=== PATIENT | female | born 1990 | race Caucasian/White ===

== ENCOUNTER 2017-03-08 20:11 | Emergency (ER) | payer OTHER ==
[~2017-03-08] VITALS: Ht 165.1 cm; Wt 100.0 kg
[~2017-03-08 20:11] MED LIST: HYOS0.1281 SL; ONDA4TAB9 PO
[2017-03-08 20:15] VITALS: BP 157/93; PULSE 89; RESP 16; O2SAT 98
--- NOTE | 2017-03-08 21:45 | ED.REPORT ---
HPI-Ear Pain/Problem/FB Date of Service Mar 08, 2017 ED Provider: Dewayne Maldonado MD Patient is a 27 y/o female who presents to the ED complaining of left ear pain onset two days ago. The pain started radiating down her neck today and she complains of nausea. She was seen at a clinic yesterday where she was diagnosed with mastoiditis and started on Augmentin. Patient reports that she did not receive a CT scan at that time but was told to come to the ED if her symptoms worsened. Nursing Notes Stated Complaint: POSS MASTOIDITIS/PAIN/NAUSEA Chief Complaint: General Complaint Nursing Notes Reviewed: Yes Allergies: Coded Allergies: No Known Allergies (Unverified , 03/08/17) Scheduled PRN Hyoscyamine SL (Levsin SL) 0.125 Mg Tab.subl 0.125 MG SL TID PRN PRN For Pain Ondansetron ODT (Zofran ODT) 4 Mg Tablet 4 MG PO Q4H PRN PRN For Nausea General Time Seen by MD: 21:50 Chief Complaint Ear problem left Hx Obtained From: Patient Arrived By: Walk-in Onset Occurred: 2 days ago Symptom Duration: Since onset Quality: Painful Severity: Current: Moderate Severity: Maximum: Moderate Recent Healthcare: No recent hospitalization, Recent doctor visit Similar Sx Previous: No Past Medical History Past Medical History Notes: none reported Past Medical History none reported Past Surgical History Reports: Cholecystectomy Smoking History Unknown if Ever Smoker Social History Alcohol Use: Denies alcohol use Drug Use: Denies drug use Other Social History: Good social support, , Lives with children Ambulatory Status Independent Review of Systems Ears / Nose / Throat: Reports: Earache left Complete sys rev & neg: except as marked. Additional Review of Systems GI: Reports: Nausea Musculoskeletal: Reports: Neck pain Physical Exam Initial Vital Signs Vital Signs (First) Date Time Temp Pulse Resp B/P Pulse Ox O2 Delivery O2 Flow Rate FiO2 03/08/17 20:15 36.6 89 16 157/93 98 Room Air Initial VS: Reviewed, Vital signs abnormal General/Constitutional: Awake, Alert ENT: Ext aud canal NL tender over the left mastoid no surrounding erythema left TM dull and red without bulging Head / Eyes: Atraumatic, Normocephalic Neck: Atraumatic, Supple, Full range of motion Respiratory / Chest: Atraumatic, Breath sounds NL, Breath sounds = bilat, No respiratory distress Cardiovascular: Heart rate NL, Regular rhythm, Heart sounds NL Skin: Atraumatic, Color NL, No rash, Warm, Dry Neurologic: Oriented X3, Speech NL Upper Extremity / MS: Atraumatic, Full range of motion Lower Extremity / Pelvis / MS: Atraumatic, Full range of motion Interpretation & Diagnostics Interpretation & Diagnostics: CT Temporal bones Impression: Normal CT of the temporal bones Electronically signed by Edwin Mcnamara M.D. Re-Eval/Medical Decision Med Decision/Clinical Course 27-year-old female who was seen in clinic yesterday for acute her ear infection and concern for mastoiditis. Imaging was not done and she was placed on Augmentin. Her symptoms have worsened slightly with increasing pain and swelling and some radiation of the pain down her neck. Because of the concern for mastoiditis and failing outpatient treatment, CT scan was performed which shows no evidence of mastoiditis. Clinically, I would suspect that this is a enlarged posterior or radicular node related to the ear infection. We will continue the Augmentin and follow up with her primary doctor in 1-2 days as needed. Source of Hx: Old records Re-Evaluation/Progress : Time of Eval: 23:59 Re-Evaluation/Progress Note: Discussed CT results and plan for discharge. Patient understands and agrees to plan. All questions were addressed. Counseled Regarding: Diagnosis, Lab results, Need for follow-up, When/why to return to ED Discharge & Departure Primary Impression: Posterior auricular lymphadenopathy Disposition: Home Discharge Condition All VS Reviewed: Yes Condition: Stable Patient Instructions: Ear Infection (ED) Additional Instructions: The CT scan shows no evidence of mastoiditis, actual infection of the mastoid air cells. I think the lump and the pain are due to a swollen posterior auricular lymph node. The antibiotic that you are currently on is appropriate for your ear infection and associated lymphadenopathy. Warm compresses might be helpful. Follow-up with your regular doctor or return to the emergency room if is not better in 2 or 3 days. You can call me at [phone] between the hours of 9 PM and 6 AM for the next few nights if you have any questions or concerns (I am not here Saturday night, though). Referrals: Gillian Griffiths MDibsusi Attestation Portion of this note were transcribed by Yeimi Thorpe and Sandra Verma. I, Dr. Dewayne Maldonado personally performed the history, physical exam and medical decision-making; I reviewed and confirmed the accuracy of the information in the transcribed note. Signed by: Yeimi Thorpe and Sandra Verma, Scribe, 03/08/17. copies to: Gillian Griffiths MD, Howard L MD Mar 08, 2017 21:45 Yeimi Thorpe Mar 08, 2017 22:00 Brenda Verma Mar 08, 2017 23:30
--- NOTE | 2017-03-09 08:11 | DRSVH ---
PROCEDURE: CT INTERNAL AUDITORY CANAL WITHOUT CONTRAST INDICATIONS: worsening left mastoid pain and swelling COMPARISON: None. TECHNIQUE: Noncontrast 0.6 mm thick direct axial and coronal sections acquired through each temporal bone separa tely. For radiation dose reduction, the following was used: automated exposure control, adjustment of mA and/or kV according to patient size. FINDINGS: Image quality: Excellent. RIGHT: External auditory canal: Canal has a normal appearance. Middle ear: The middle ear structures, including the ossicles and tympanic membrane, appear normal. No abnormal fluid or soft tissue density. Inner ear: Inner ear is normally formed and appears unremarkable. Facial nerve appears normal throu ghout is course. Mastoids: Mastoid air cells are clear. LEFT: External auditory canal: Canal has a normal appearance. Middle ear: The middle ear structures, including the ossicles and tympanic membrane, appear normal. No abnormal fluid or soft tissue density. Inner ear: Inner ear is normally formed and appears unremarkable. Facial nerve appears normal throu ghout its course. Mastoids: Mastoid air cells are clear. MISCELLANEOUS: Visualized surrounding bones appear unremarkable. Visualized intracranial structures , including the cerebellopontine angle cisterns, appear normal. IMPRESSION: Negative scan of the temporal bones. Dictated by: Medina Osman MD, PhD on 03/09/2017 at 8:06 Approved by: Medina Osman MD, PhD on 03/09/2017 at 8:09
== END 2017-03-09 00:01 | disposition home or self-care (01) ==
LOC: SED 20:11
DX: R59.1 Generalized enlarged lymph nodes (principal)

== ENCOUNTER 2017-03-23 19:52 | Emergency (ER) | payer OTHER ==
[~2017-03-23] VITALS: Ht 165.1 cm; Wt 100.0 kg
[2017-03-23 19:55] VITALS: BP 131/87; PULSE 102; RESP 16; O2SAT 98
[2017-03-23 22:18] LABS: APPEARANCE,URINE CLEAR (CLEAR,HAZY); COLOR,URINE STRAW (YELLOW); OCCULT BLOOD,URINE LARGE (NEGATIVE); UROBILINOGEN,URINE NORMAL (NORMAL)
--- NOTE | 2017-03-23 22:29 | ED.REPORT ---
HPI-Abd Pain F Under 40 Date of Service Mar 23, 2017 ED Provider: Chip Meyers MD Pt is a healthy 27 y/o female presenting to the ED c/o UTI-like symptoms onset yesterday. She was experiencing dysuria yesterday which is now resolved although she is now experiencing bilateral lumbar back pain which she describes as kidney pain. She does have a history of UTIs. She denies any other symptoms. Nursing Notes Stated Complaint: KIDNEY PAIN,CLOUDY URINE Chief Complaint: Female Abdominal Pain Nursing Notes Reviewed: Yes Allergies: Coded Allergies: No Known Allergies (Unverified , 03/08/17) Scheduled Cefuroxime Axetil (Cefuroxime) 500 Mg Tablet 500 MG PO BID Scheduled PRN Hyoscyamine SL (Levsin SL) 0.125 Mg Tab.subl 0.125 MG SL TID PRN PRN For Pain Ondansetron ODT (Zofran ODT) 4 Mg Tablet 4 MG PO Q4H PRN PRN For Nausea Phenazopyridine (Phenazopyridine) 200 Mg Tablet 200 MG PO TID PRN PRN dysuria General Time Seen by MD: 22:25 Chief Complaint Other (uti) Hx Obtained From: Patient Arrived By: Walk-in Sudden in Onset?: Yes Onset Occurred: Yesterday Symptom Duration: Since onset Progression since Onset: Gradually improving Location: : Back Quality: Painful Severity: Current: Moderate Severity: Maximum: Moderate Past Medical History Past Medical History Notes: none reported Past Medical History none reported Past Surgical History Reports: Cholecystectomy Smoking History Unknown if Ever Smoker Social History Alcohol Use: Denies alcohol use Drug Use: Denies drug use Other Social History: Good social support, , Lives with children Ambulatory Status Independent Review of Systems Constitutional: Denies: Fever GI: Denies: Abdominal pain, Vomiting Female: Reports: Dysuria, Urinary frequency Musculoskeletal: Reports: Back pain Complete sys rev & neg: except as marked. Physical Exam Initial Vital Signs Vital Signs (First) Date Time Temp Pulse Resp B/P Pulse Ox O2 Delivery O2 Flow Rate FiO2 03/23/17 19:55 36.9 102 16 131/87 98 Room Air Initial VS: Reviewed Head / Eyes: Atraumatic, Normocephalic ENT: Mucous membranes moist, Conjunctiva normal Neck: Full range of motion Extremities: Vascular intact, Neuro intact, No swelling Skin: Warm, Dry, No cyanosis Neurologic: Alert, Oriented, Nonfocal Psychiatric: Mood/affect normal, Behavior normal, Normal thought content General/Constitutional: Awake, Alert, No acute distress, Well appearing, Cooperative, Not toxic appearing Respiratory / Chest: Breath sounds NL, Breath sounds = bilat, No respiratory distress, No rales, No rhonchi, No wheezing Cardiovascular: Heart rate NL, Regular rhythm, Heart sounds NL, No gallop, No murmurs, No rubs, Cap refill not delayed Abdomen: Atraumatic, Soft, Non-tender, No guarding, No rebound, No distention, No palpable mass Back: Full range of motion, Painless range of motion Bilateral punch tenderness lumbar region Interpretation & Diagnostics Lab Results Interpretation Test 03/23/17 21:14 Urine Color Straw (YELLOW) Urine Appearance Clear (CLEAR,HAZY) Urine pH 7.0 (5.0-8.0) Urine Specific [place] 1.003 (1.003-1.035) Urine Protein Negativemg/dL (NEG,TRACE) Urine Glucose (UA) Negativemg/dL (NEGATIVE) Urine Ketones Negativemg/dL (NEGATIVE) Urine Occult Blood Large (NEGATIVE) Urine Nitrite Negative (NEGATIVE) Urine Bilirubin Negative (NEGATIVE) Urine Urobilinogen Normalmg/dL (NORMAL) Urine Leukocyte Esterase Moderate (NEGATIVE) Urine RBC 0-2/hpf (0-2) Urine WBC 0-5/hpf (0-5) Urine Epithelial Cells Few/hpf (NONE-MOD) Urine Crystals None seen (NONE SEEN) Urine Bacteria Moderate/hpf (NONE-FEW) Urine Hyaline Casts None/lpf (NONE) Urine Granular Casts None seen (NONE SEEN) Urine Waxy Casts None seen (NONE SEEN) Urine Red Blood Cell Casts None seen (NONE SEEN) Urine White Blood Cell Casts None seen (NONE SEEN) Urine Mucus None seen (None Seen) Urine Trichomonas None seen (NONE SEEN) Urine Yeast None (NONE SEEN) Urinalysis Comment None Urine Culture Reflexed Indicated Hold Urine Received (Received) Re-Eval/Medical Decision Med Decision/Clinical Course Med Decision/Clinical Course: 27-year-old prior UTI and recent treatment with Augmentin for sinusitis, presents with dysuria and flank pain bilaterally. No other comorbidities. Urine is positive for leukocyte Esterase or relatively benign as far as cellular content. Culture is currently pending. Begin Ceftin twice daily. Begin Pyridium when necessary. Follow-up with PCP. Referred to Dr. segura for ongoing, coverage from call list Re-Evaluation/Progress : Time of Eval: 22:33 Re-Evaluation/Progress Note: Pt rechecked. Informed pt of plan for discharge. Pt understands and agrees with plan for discharge. F/U instructions and RTER warnings given. All questions addressed. Counseled Regarding: Diagnosis, Lab results, Need for follow-up, When/why to return to ED Discharge & Departure Primary Impression: Urinary tract infection Disposition: Home Discharge Condition All VS Reviewed: Yes Condition: Stable Begin Ceftin twice daily for ten full days. Begin Pyridium three times daily if needed for discomfort. Drink plenty of fluids as you have been doing. Follow-up with local physician. You may follow-up at [facility] with Dr. Pagan if needed for local coverage. Referrals: NOPCP (PCP) Jose Pagan MD Scribe Attestation Portions of this note were transcribed by Addison Kline. I, Dr. Meyers personally performed the history, physical exam and medical decision-making; I reviewed and confirmed the accuracy of the information in the transcribed note. copies to: Jose Pagan MD, Christopher W MD Mar 23, 2017 22:29 ADDISON KLINE Mar 23, 2017 22:31
[2017-03-23] MEDS ORDERED: Phenazopyridine 97.5 mg Tablet PO ONE (22:35)
[2017-03-23] MEDS ORDERED: CEFU500T61 PO (22:35)
[2017-03-23] MEDS ORDERED: PHEN-777 PO (22:36)
[2017-03-23 22:59] VITALS: BP 131/90; PULSE 89; O2SAT 98
== END 2017-03-23 23:00 | disposition home or self-care (01) ==
LOC: SED 19:52
DX: N39.0 Urinary tract infection, site not specified (principal); B96.20 Unspecified Escherichia coli [E. coli] as the cause of diseases classified elsewhere; Z87.440 Personal history of urinary (tract) infections; Z90.49 Acquired absence of other specified parts of digestive tract